=== PATIENT | male | born 1970 | race American Indian/Alaskan Native ===

== ENCOUNTER 2016-08-17 14:58 | Emergency (ER) | payer MEDICAID ==
[2016-08-17] MEDS ORDERED: TYLENOL PO ONE (15:14)
[2016-08-17] MEDS ORDERED: MOTRIN PO ONE (18:24)
[2016-08-17] MEDS ORDERED: BENADRYL PO ONE (18:25)
[2016-08-17] MEDS ORDERED: DUONEB 0.5 MG-3 MG/3 ML SOLN IH ONE (18:28)
--- NOTE | 2016-08-17 18:34 | Emergency Department Report ---
HPI - General Chief Complaint: Upper Respiratory Infection - HPI HPI: 45-year-old -[place] male comes in for flulike symptoms that started 1 day. Patient reports he has a fever, cough, bodyaches and wheezing Denies any nausea vomiting. Patient reports that he needs to refill his nebulizer nebs. He's been using his Proventil as prescribed. He was given Tylenol in triage. ED Past Medical Hx - Past Medical History Previous Medical History?: Yes Hx Asthma: Yes Hx HIV: Yes - Surgical History Past Surgical History?: No - Social History Smoking Status: Current Every Day Smoker Substance Use Type: Alcohol - Medications Home Medications: Home Medications Medication Instructions Recorded Confirmed Last Taken Type Nebulizer [Compact Compressor 1 each MC PRN #1 each 09/30/15 Unknown Rx Nebulizer] Prednisone [predniSONE 10 mg 10 mg PO .TAPER #1 tab.ds.pk 09/30/15 Unknown Rx (6-Day Pack, 21 Tabs)] Cyclobenzaprine [Flexeril] 10 mg PO TID PRN #15 tablet 05/07/16 Unknown Rx Ibuprofen [Motrin] 800 mg PO Q8HR PRN #15 tablet 05/07/16 Unknown Rx ALBUTEROL Inhaler [ProAir HFA 2 puff IH QID PRN #1 box 08/17/16 Unknown Rx Inhaler] ALBUTEROL NEB's [Proventil 0.083% 2.5 mg IH Q6HR PRN #1 box 08/17/16 Unknown Rx NEBS] Amoxicillin [Amoxicillin TAB] 875 mg PO BID #14 tablet 08/17/16 Unknown Rx Montelukast [Singulair] 10 mg PO QPM #30 tablet 08/17/16 Unknown Rx Prednisone [predniSONE 5 mg (6-Day 5 mg PO .TAPER #1 tab.ds.pk 08/17/16 Unknown Rx Pack, 21 Tabs)] ED Review of Systems ROS: Stated complaint: FLU-LIKE SYMPTOMS Other details as noted in HPI Physical Exam - Physical Exam Vital Signs: Vital Signs 08/17/16 08/17/16 15:09 15:18 Temperature 102.8 F H Pulse Rate 114 H Respiratory 20 116 H Rate Blood Pressure 129/81 O2 Sat by Pulse 94 Oximetry Physical Exam: GENERAL: Alert and oriented x3, no apparent distress, Normal Gait, atraumatic. HEAD: Head is normocephalic and a-traumatic. EYES: Extra ocular muscles are intact. Pupils are equal, round, and reactive to light and accommodation. EARS: symetrical, atraumatic, non tender, ear canal clear and moderate cerumen, tympanic membrance non inflamed. gross auditory nml bilaterally. NOSE: Nose symetrical, Nontender,Nares appeared normal. MOUTH:Mouth is well hydrated and without lesions. Tonsils nonerythematous or swollen, Uvula midline, Tongue not elevated. Mucous membranes are moist. Posterior pharynx clear, no exudate or lesions. Patent airways. NECK: Supple. Non edematous, No carotid bruits. No lymphadenopathy or thyromegaly. LUNGS: Symetrical with respiration, bilateral wheezing throughout lung hi HEART: S1, S2 present, tachycardic rate and rhythm without murmur, no rubs, no gallops. ABDOMEN: No organomegaly was noted,Positive bowel sounds, soft, and non- distended. . Nontender to palpation on all Quadrants, NO CVA tenderness. EXTREMITIES/MUSCULOSKELETAL: No cyanosis, clubbing, rash, lesions or edema. Full ROM bilaterally. UE/LE Pulses 2+ bilaterally. LE and UE 5+ strength bilaterally NEUROLOGIC: No focal Deficit, Cranial nerves II through XII are grossly intact. No loss of sensation, No facial droop, PSYCHIATRIC: Mood is congruent with affect, denies suicidal or homicidal ideations. SKIN: Warm and dry, No lesions, No ulceration or induration present ED Course Vital Signs 08/17/16 08/17/16 15:09 15:18 Temperature 102.8 F H Pulse Rate 114 H Respiratory 20 116 H Rate Blood Pressure 129/81 O2 Sat by Pulse 94 Oximetry ED Medical Decision Making - Medical Decision Making Assessment evaluated by this provider fast track. Sent out and influenza test. Chest x-ray ordered Solu-Medrol 40 mg IM ordered dual neb ordered ibuprofen 800 mg by mouth ordered and magnesium 2 mg. She'll be discharged on Singulair 10 mg by mouth daily albuterol nebulizer one nebulizer 3 times a day when necessary for shortness of breathing wheezing and cough also discharging patient on albuterol inhaler. As well as amoxicillin 875 one tablet by mouth 3 times a day for 7 days. Discussed the patient again is to follow-up with the primary care provider we will refer him to a drug safety data management specialist for further workup. Critical care attestation.: If time is entered above; I have spent that time in minutes in the direct care of this critically ill patient, excluding procedure time. ED Disposition Clinical Impression: Asthma exacerbation attacks Qualifiers: Asthma severity: unspecified severity Qualified Code(s): J45.901 - Unspecified asthma with (acute) exacerbation Disposition: DISCHARGED TO HOME OR SELFCARE Is pt being admited?: No Does the pt Need Aspirin: No Condition: Stable Additional Instructions: Please take asthma medication as prescribed. Please follow-up with the drug safety data management specialist and primary care I have listed several on your discharge summary. Return to the emergency room if symptoms persists or gets worse. Prescriptions: ALBUTEROL Inhaler [ProAir HFA Inhaler] 2 puff IH QID PRN #1 box PRN Reason: Shortness Of Breath ALBUTEROL NEB's [Proventil 0.083% NEBS] 2.5 mg IH Q6HR PRN #1 box PRN Reason: Wheezing Amoxicillin [Amoxicillin TAB] 875 mg PO BID #14 tablet Montelukast [Singulair] 10 mg PO QPM #30 tablet Prednisone [predniSONE 5 mg (6-Day Pack, 21 Tabs)] 5 mg PO .TAPER #1 tab.ds.pk Referrals: PRIMARY CARE, [Primary Care Provider] - 3-5 Days [facility] [Provider Group[facility] - 3-5 Days [facility] [Provider Group] - 3-5 Days [facility] [Provider Group] - 3-5 Days [facility] [Provider Group] - 3-5 Days Forms: Work/School Release Form(ED), Accompanied Note
[2016-08-17] MEDS ORDERED: MAGNESIUM SULFATE 2GM/50ML 2 GM/50 ML BAG IV ONE (18:37)
[2016-08-17] MEDS ORDERED: PROVENTIL IH ONE (19:07)
[2016-08-17 20:47] VITALS: BP 96/52
[2016-08-17] MEDS ORDERED: XYLOCAINE 1% MPF 5 mL INFILTRATI ONE (20:49)
[2016-08-17] MEDS ORDERED: ROCEPHIN IM ONE (20:49)
--- NOTE | 2016-08-18 09:07 | XRay Report ---
CHEST 2 VIEWS INDICATION: Shortness of breath, wheezing with fever, cough. COMPARISON: None similar. FINDINGS: PA and lateral chest radiographs demonstrate normal cardiomediastinal silhouette. No effusions or CHF, though minimal fluid along the major fissure or thickening incidentally noted. Meredith grossly normal. Increased lung markings centrally/perihilar noted. Slight mid thoracic spine degenerative spurring. CONCLUSION: Nonspecific slightly prominent lung markings with subtle infiltrates not excluded, as described. Direct comparison with prior chest imaging would be very helpful in this regard, if available. Chest CT would otherwise provide additional information, as warranted. Thank you for the opportunity to participate in this patient's care.
== END 2016-08-17 21:43 | disposition home or self-care (01) ==
LOC: ED 14:58
DX: J45.901 Unspecified asthma with (acute) exacerbation (principal); F17.200 Nicotine dependence, unspecified, uncomplicated
CPT/HCPCS: 71020; 87400; 94640; 96372; 96374; 99284; J0696; J2920; J3475

== ENCOUNTER 2016-09-27 13:04 | Emergency (ER) | payer MEDICAID ==
[2016-09-27 13:25] VITALS: BP 108/65
[2016-09-27 13:49] LABS: Basophils % (Auto) 0.5 % (0.0-1.8); Eosinophils % (Auto) 6.9 % (0.0-4.3); Hematocrit 40.2 % (35.5-45.6); Hemoglobin 13.4 gm/dl (11.8-15.2); Mean Corpuscular HGB Conc 33 % (32-34); Mean Corpuscular Hemoglobin 30 pg (28-32); Mean Corpuscular Volume 91 fl (84-94); Platelet Count 247 K/mm3 (140-440); Red Blood Count 4.41 M/mm3 (3.65-5.03); Red Cell Distribution Width 13.8 % (13.2-15.2); White Blood Count 5.9 K/mm3 (4.5-11.0)
[2016-09-27 14:00] LABS: Anion Gap 18 mmol/L; BUN/Creatinine Ratio 6.15; Blood Urea Nitrogen 8 mg/dL (9-20); Carbon Dioxide 24 mmol/L (22-30); Chloride 97.7 mmol/L (98-107); Glucose 111 mg/dL (75-100); Potassium 3.7 mmol/L (3.6-5.0); Sodium 136 mmol/L (137-145)
--- NOTE | 2016-09-28 09:44 | XRay Report ---
CHEST TWO VIEWS: 09/27/16 13:04:00 CLINICAL: Chest pain. COMPARISON: 08/17/16 FINDINGS: Normal heart and pulmonary vasculature. The lungs are normally expanded and clear.The bones and soft tissues are unremarkable. IMPRESSION: Normal chest.
--- NOTE | 2016-10-02 07:26 | ED Elopement Review ---
ED Pt Elopement review - Results review Lab results: Laboratory Tests 09/27/16 09/27/16 09/27/16 13:31 13:31 16:34 WBC 5.9 RBC 4.41 Hgb 13.4 Hct 40.2 MCV 91 MCH 30 MCHC 33 RDW 13.8 Plt Count 247 Lymph % (Auto) 45.8 H [place] % (Auto) 9.1 H Eos % (Auto) 6.9 H Baso % (Auto) 0.5 Lymph # 2.7 [place] # 0.5 Eos # 0.4 Baso # 0.0 Seg Neutrophils % 37.7 L Seg Neutrophils # 2.2 Sodium 136 L Potassium 3.7 Chloride 97.7 L Carbon Dioxide 24 Anion Gap 18 BUN 8 L Creatinine 1.3 Estimated GFR > 60 BUN/Creatinine Ratio 6.15 Glucose 111 H Calcium 9.0 Troponin T < 0.010 < 0.010 - Call Back decision Pt Call Back Decision: No action required
== END 2016-09-27 19:45 | disposition left against medical advice (07) ==
LOC: ED 13:04
DX: R07.9 Chest pain, unspecified (principal); Z53.21 Procedure and treatment not carried out due to patient leaving prior to being seen by health care provider
CPT/HCPCS: 36415; 71020; 80048; 84484; 85025; 93005; 93010